=== PATIENT | female | born 1990 | race Caucasian/White ===

== ENCOUNTER 2019-02-16 05:26 | Inpatient (IN) | payer OTHER, MEDICAID ==
[2019-02-16] MEDS ORDERED: Sodium Chloride 0.9% 10 ML Syringe FLUSH PRN (05:54)
[2019-02-16] MEDS ORDERED: Sodium Chloride 0.9% 10 ML SDV IV PRN (05:54)
[2019-02-16] MEDS ORDERED: Sodium Chloride 0.9% 2.5 ML Syringe FLUSH PRN (05:54)
[2019-02-16] MEDS: Lactated Ringers 1,000 ML IV SCH ×3 (06:15→21:10)
--- NOTE | 2019-02-16 07:28 | PCM.PREANE ---
Preanesthetic Assessment - Anesthesia/Transfusion/Family Hx Anesthesia History: Prior Anesthesia Without Reaction Family History of Anesthesia Reaction: No Transfusion History: No Prior Transfusion(s) Intubation History: Unknown - Review of Systems General: No Symptoms Pulmonary: No Symptoms Cardiovascular: No Symptoms Gastrointestinal: No Symptoms Neurological: No Symptoms Other: Reports: None - Physical Assessment Height: 1.65 m Weight: 95.254 kg ASA Class: 2 Mental Status: Alert & Oriented x3 Airway Class: Mallampati = 2 Dentition: Reports: Normal Dentition Thyro-Mental Finger Breadths: 3 Mouth Opening Finger Breadths: 3 ROM/Head Extension: Full Lungs: Clear to Auscultation, Normal Respiratory Effort Cardiovascular: Regular Rate, Regular Rhythm - Lab Values: Laboratory Last Values WBC 9.47 K/uL (4.0-11.0) 02/16/19 06:15 RBC 3.96 M/uL (4.30-5.90) L 02/16/19 06:15 Hgb 11.5 g/dL (12.0-16.0) L 02/16/19 06:15 Hct 34.1 % (36.0-46.0) L 02/16/19 06:15 MCV 86.1 fL (80.0-98.0) 02/16/19 06:15 MCH 29.0 pg (27.0-32.0) 02/16/19 06:15 MCHC 33.7 g/dL (31.0-37.0) 02/16/19 06:15 RDW Std Deviation 45.7 fl (28.0-62.0) 02/16/19 06:15 RDW Coeff of Aleena 15 % (11.0-15.0) 02/16/19 06:15 Plt Count 145 K/uL (150-400) L 02/16/19 06:15 Nucleated RBC % 0.0 /100WBC 02/16/19 06:15 Nucleated RBCs # 0 K/uL 02/16/19 06:15 Blood Type O POSITIVE 02/16/19 06:15 Antibody Screen NEGATIVE 02/16/19 06:15 - Allergies Allergies/Adverse Reactions: Allergies Allergy/AdvReac Type Severity Reaction Status Date / Time No Known Allergies Allergy Verified 12/30/18 11:02 - Blood Blood Available: No - Anesthesia Plan Pre-Op Medication Ordered: None - Acknowledgements Anesthesia Type Planned: Spinal Pt an Appropriate Candidate for the Planned Anesthesia: Yes Alternatives and Risks of Anesthesia Discussed w Pt/Guardian: Yes Pt/Guardian Understands and Agrees with Anesthesia Plan: Yes PreAnesthesia Questionnaire Other Gastrointestinal History: occasional heartburn, not recently Genitourinary History: Reports: None 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) Endocrine/Metabolic History: Reports: Diabetes, Gestational Other Endocrine/Metabolic History: diet controlled - Past Surgical History GI Surgical History: Reports: Cholecystectomy Female Surgical History: Reports: Section - SUBSTANCE USE Smoking Status *Q: Never Smoker Recreational Drug Use History: No - HOME MEDS Home Medications: Home Meds PNV95/Ferrous Fumarate/FA [ Tablet] 1 each PO DAILY 01/13/19 [History] - CURRENT (IN HOUSE) MEDS Current Meds: Current Medications Citric Acid/Sodium Citrate (Bicitra Solution) 30 ml PO ONETIME ONE Stop: 02/16/19 07:31 Cefazolin Sodium/Dextrose 2 gm (/ Premix) 50 mls @ 100 mls/hr IV ONETIME ONE Stop: 02/16/19 07:59 Lactated Ringer's (Ringers, Lactated) 1,000 mls @ 500 mls/hr IV BOLUS MAYURI Oxytocin/Sodium Chloride (Oxytocin 30 Unit/500 Ml-Ns) 30 unit in 500 mls @ 250 mls/hr IV TITRATE MAYURI Sodium Chloride (Saline Flush) 10 ml FLUSH ASDIRECTED PRN PRN Reason: Keep Vein Open Sodium Chloride (Saline Flush) 2.5 ml FLUSH ASDIRECTED PRN PRN Reason: Keep Vein Open Sodium Chloride (Normal Saline) 10 ml IV ASDIRECTED PRN PRN Reason: IV Use
[2019-02-16] MEDS ORDERED: ceFAZolin 2 GM in Premix Bag 1 BAG IV ONE (07:30)
[2019-02-16] MEDS ORDERED: Citric Acid/Sodium Citrate Solution 30 ML Cup PO ONE (07:30)
[2019-02-16] MEDS ORDERED: Oxytocin/0.9 % Sodium Chloride 30 UNIT/500 ML BAG IV SCH (07:30)
[2019-02-16] MEDS ORDERED: Oxytocin 10 Units/1 ML SDV ONE (07:41)
[2019-02-16] MEDS ORDERED: Octyl 2-Cyanoacrylate 1 Tube ONE (07:41)
[2019-02-16] MEDS ORDERED: Ondansetron 4 MG/2 ML SDV ONE (07:41)
[2019-02-16] MEDS ORDERED: Morphine PF 10 MG/10 ML SDV ONE (07:41)
[2019-02-16] MEDS ORDERED: ceFAZolin 1 GM Vial ONE (07:42)
[2019-02-16] MEDS ORDERED: Sodium Chloride 0.9% 20 ML ONE (07:42)
--- NOTE | 2019-02-16 07:56 | PCM.LDHP ---
L&D History of Present Illness - General Date of Service: 02/16/19 Admit Problem/Dx: Patient Status Order with Admit Dx/Problem 02/16/19 05:55 Patient Status [ADT] Routine Admission Diagnosis/Problem Admission Diagnosis/Problem Source of Information: Patient History Limitations: Reports: No Limitations - History of Present Illness Improves with: Reports: None Worsens with: Reports: None Associated Symptoms: Reports: N - Related Data Allergies/Adverse Reactions: Allergies Allergy/AdvReac Type Severity Reaction Status Date / Time No Known Allergies Allergy Verified 12/30/18 11:02 Home Medications: Home Meds PNV95/Ferrous Fumarate/FA [ Tablet] 1 each PO DAILY 01/13/19 [History] Past Medical History Other Gastrointestinal History: occasional heartburn, not recently Genitourinary History: Reports: None 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) Endocrine/Metabolic History: Reports: Diabetes, Gestational Other Endocrine/Metabolic History: diet controlled - Past Surgical History GI Surgical History: Reports: Cholecystectomy Female Surgical History: Reports: Section Social & Family History - Tobacco Use Smoking Status *Q: Never Smoker - Recreational Drug Use Recreational Drug Use: No Drug Use in Last 12 Months: No H&P Review of Systems - Review of Systems: Review Of Systems: See Below General: Reports: No Symptoms HEENT: Reports: No Symptoms Pulmonary: Reports: No Symptoms Cardiovascular: Reports: No Symptoms Gastrointestinal: Reports: No Symptoms Genitourinary: Reports: No Symptoms Musculoskeletal: Reports: No Symptoms Skin: Reports: No Symptoms Psychiatric: Reports: No Symptoms Neurological: Reports: No Symptoms Hematologic/Lymphatic: Reports: No Symptoms Immunologic: Reports: No Symptoms L&D Exam - Exam Exam: See Below - Vital Signs Weight: 95.254 kg - OB Specific Fundal Height In cm: 45 Contraction Intensity: Mild Movement: Active Heart Tones: Present Presentation: Vertex - Exam General: Alert, Oriented HEENT: PERRLA, Conjunctiva Clear, EACs Clear, EOMI, Hearing Intact, Mucosa Moist & [place], Nares Patent, Normal Nasal Septum, Posterior Pharynx Clear, TMs Clear Neck: Supple, Trachea Midline Lungs: Clear to Auscultation, Normal Respiratory Effort Cardiovascular: Regular Rate, Regular Rhythm GI/Abdominal Exam: Normal Bowel Sounds, Soft, Non-Tender, No Organomegaly, No Distention, No Abnormal Bruit, No Mass, Pelvis Stable Rectal Exam: Normal Exam, Normal Rectal Tone Genitourinary: Normal external exam, Normal bimanual exam, Normal speculum exam Back Exam: Normal Inspection, Full Range of Motion Extremities: Normal Inspection, Normal Range of Motion, Non-Tender, No Pedal Edema, Normal Capillary Refill Skin: Warm, Dry, Intact Neurological: Cranial Nerves Intact, Reflexes Equal Bilateral Psychiatric: Alert, Normal Affect, Normal Mood - Patient Data Lab Results Last 24 hrs: Laboratory Results - last 24 hr 02/16/19 02/16/19 02/16/19 Range/Units 06:15 06:15 07:44 WBC 9.47 (4.0-11.0) K/uL RBC 3.96 L (4.30-5.90) M/uL Hgb 11.5 L (12.0-16.0) g/dL Hct 34.1 L (36.0-46.0) % MCV 86.1 (80.0-98.0) fL MCH 29.0 (27.0-32.0) pg MCHC 33.7 (31.0-37.0) g/dL RDW Std Deviation 45.7 (28.0-62.0) fl RDW Coeff of Aleena 15 (11.0-15.0) % Plt Count 145 L (150-400) K/uL Nucleated RBC % 0.0 /100WBC Nucleated RBCs # 0 K/uL POC Glucose 66 (60-110) mg/dL Blood Type O POSITIVE Antibody Screen NEGATIVE Result Diagrams: 02/16/19 06:15 Problem List Initiated/Reviewed/Updated: Yes Orders Last 24hrs: Active Orders 24 hr Category Date Time Status Patient Status [ADT] Routine ADT 02/16/19 05:55 Active Non Stress Test [RC] PER UNIT ROUTINE Care 02/16/19 05:55 Active Notify Provider Vital Signs [RC] PRN Care 02/16/19 05:55 Active Procedure Site Prep Instruct [RC] ASDIRECTED Care 02/16/19 05:55 Active Up ad Naila [RC] ASDIRECTED Care 02/16/19 05:55 Active Verify Patient Consent Obtain [RC] ASDIRECTED Care 02/16/19 05:55 Active Vital Signs [RC] PER UNIT ROUTINE Care 02/16/19 05:55 Active Lactated Ringers [Ringers, Lactated] 1,000 ml Med 02/16/19 06:00 Active IV BOLUS Oxytocin/0.9 % Sodium Chloride [Oxytocin 30 Unit/500 ML Med 02/16/19 07:30 Active -NS] 30 unit in 500 ml IV TITRATE Sodium Chloride 0.9% [Normal Saline] Med 02/16/19 05:54 Active 10 ml IV ASDIRECTED PRN Sodium Chloride 0.9% [Saline Flush] Med 02/16/19 05:54 Active 10 ml FLUSH ASDIRECTED PRN Sodium Chloride 0.9% [Saline Flush] Med 02/16/19 05:54 Active 2.5 ml FLUSH ASDIRECTED PRN ceFAZolin [Ancef] 2 gm Med 02/16/19 07:30 Active Premix Bag 1 bag IV ONETIME Peripheral IV Insertion Adult [OM.PC] Routine Oth 02/16/19 05:55 Ordered Schedule Procedure [COMM] Per Unit Routine Oth 02/16/19 05:55 Ordered Resuscitation Status Routine Resus Stat 02/16/19 05:54 Ordered Medication Orders Cefazolin Sodium/Dextrose 2 gm (/ Premix) 50 mls @ 100 mls/hr IV ONETIME ONE Stop: 02/16/19 07:59 Lactated Ringer's (Ringers, Lactated) 1,000 mls @ 500 mls/hr IV BOLUS MAYURI Last Admin: 02/16/19 07:16 Dose: 999 mls/hr Infusion: 02/16/19 07:16 Dose: 999 mls/hr Admin: 02/16/19 06:15 Dose: 999 mls/hr Oxytocin/Sodium Chloride (Oxytocin 30 Unit/500 Ml-Ns) 30 unit in 500 mls @ 250 mls/hr IV TITRATE MAYURI Sodium Chloride (Saline Flush) 10 ml FLUSH ASDIRECTED PRN PRN Reason: Keep Vein Open Sodium Chloride (Saline Flush) 2.5 ml FLUSH ASDIRECTED PRN PRN Reason: Keep Vein Open Sodium Chloride (Normal Saline) 10 ml IV ASDIRECTED PRN PRN Reason: IV Use Assessment/Plan Comment:: IUP 37 wks twin admitted for elective repeat C/section.
[2019-02-16] MEDS ORDERED: 50% Dextrose in Water 50 ML Syringe ONE (08:07)
[2019-02-16] MEDS ORDERED: Phenylephrine/Normal Saline 100 MCG/ML 10 ML Syringe ONE (08:11)
[2019-02-16] MEDS ORDERED: ePHEDrine 50 MG/ML SDV ONE (08:11)
[2019-02-16] MEDS ORDERED: Naloxone 0.4 MG/ML Syringe IVPUSH PRN (08:46)
[2019-02-16] MEDS ORDERED: diphenhydrAMINE 50 MG/ML SDV IVPUSH PRN ×2 (08:46→08:56)
[2019-02-16] MEDS ORDERED: Nalbuphine 10 MG/1 ML Vial IVPUSH PRN (08:46)
[2019-02-16] MEDS ORDERED: Bisacodyl 10 MG Supp RECTAL PRN (08:56)
[2019-02-16] MEDS ORDERED: Acetaminophen/oxyCODONE 325-5 MG Tab PO PRN (08:56)
[2019-02-16] MEDS ORDERED: Ibuprofen 800 MG Tab PO PRN (08:56)
[2019-02-16] MEDS ORDERED: Lanolin 100% Cream 7 GM Tube TOP PRN (08:56)
[2019-02-16] MEDS: Ketorolac 30 MG/ML SDV IVPUSH SCH ×3 (09:00→21:13)
--- NOTE | 2019-02-16 09:00 | PCM.OPNOTE ---
- General Post-Op/Procedure Note Date of Surgery/Procedure: 02/16/19 Operative Procedure(s): Repeat C/section. Pre Op Diagnosis: Twin at 37 wks. previous C/section. Post-Op Diagnosis: Same Anesthesia Technique: Spinal Primary Surgeon: Hai Avery EBL in mLs: 700 Complications: None Condition: Good
--- NOTE | 2019-02-16 14:30 | OR ---
SURGEON: Hai Avery MD DATE OF PROCEDURE: 02/16/2019 PREOPERATIVE DIAGNOSES: 1. Intrauterine at 37 weeks, twin . 2. Previous section. POSTOPERATIVE DIAGNOSES: 1. Intrauterine at 37 weeks, twin . 2. Previous section. OPERATION PERFORMED: Elective repeat section for twin . MANAGER TECHNICAL TRAINING: Janine Hernandez, certified nurse blood bank custodian student. MEDICAL RECORD CODER: Michael Jones M.D. ANESTHESIA: Spinal. ANESTHESIOLOGIST: Mr. Kobi Richey and Dr. Saldana. ESTIMATED BLOOD LOSS: 700 mL. COMPLICATIONS: None. FINDING: Twin male and female. score reported for both of them are 8 and 9. Normal uterus, tubes, and ovaries. INDICATION FOR SURGERY: The patient is with twin, she is 37 weeks. She had a previous section. She is admitted for elective repeat section. PROCEDURE IN DETAIL: The patient was brought to the OR, properly identified, and after adequate level of spinal anesthesia with a Rodriguez catheter in the bladder, the patient was prepped and draped in sterile fashion as usual. Time-out was taken and the patient reidentified properly, and low transverse Pfannenstiel skin incision was done through the old scar. The Malini's fascia and rectus fascia were opened in direction of the incision. The two recti muscles were and peritoneal cavity was entered. Bladder flap was raised in the usual manner pushing the bladder away from the lower uterine segment, then a low-transverse uterine incision was done and extended manually with the hand. Fetus was in a vertex position, delivered without any problem, cried immediately. score reported to be 8 and 9, and then after handed twin A to the diamond merchant for further resuscitation, then twin B after rupture of membrane, was in a breech presentation, delivered without any problem, and his score was 8 and 9. The placenta delivered spontaneous, complete, and intact, and repair of the lower uterine segment was done with 2-0 Vicryl continuous interlocking in 2 layers. Reperitonealization done with 3-0 Vicryl continuous, and then the peritoneal cavity evacuated completely from all blood and blood clot and closed with 3-0 Vicryl continuous. The rectus fascia was closed with #1 PDS continuous, and Malini's fascia with 3-0 Vicryl continuous, and the skin was closed with skin clips, Insorb, and Dermabond. Instrument and sponge counts were correct. The patient tolerated the procedure well and went to recovery room in stable general condition. JOHN / DYLAN /[id number]
[2019-02-16] MEDS: Docusate Sodium 100 MG Cap PO SCH ×2 (14:41→21:13)
[2019-02-16] MEDS: Ondansetron 4 MG/2 ML SDV IVPUSH PRN (15:21)
[2019-02-17] MEDS: Ondansetron 4 MG/2 ML SDV IVPUSH PRN (03:05)
[2019-02-17] MEDS: Ketorolac 30 MG/ML SDV IVPUSH SCH ×2 (03:08→08:51)
[2019-02-17] MEDS: Lactated Ringers 1,000 ML IV SCH (03:10)
--- NOTE | 2019-02-17 08:42 | PCM.PNPP ---
- General Info Date of Service: 02/17/19 Functional Status: Reports: Pain Controlled - Review of Systems General: Reports: No Symptoms HEENT: Reports: No Symptoms Pulmonary: Reports: No Symptoms Cardiovascular: Reports: No Symptoms Gastrointestinal: Reports: No Symptoms Genitourinary: Reports: No Symptoms Musculoskeletal: Reports: No Symptoms Skin: Reports: No Symptoms Neurological: Reports: No Symptoms Psychiatric: Reports: No Symptoms - General Info Date of Service: 02/17/19 - Patient Data Vital Signs - Most Recent: Last Vital Signs Temp 36.9 C 02/17/19 08:14 Pulse 72 02/17/19 08:14 Resp 18 02/17/19 08:14 BP 122/83 02/17/19 08:14 Pulse Ox 97 02/17/19 08:14 Weight - Most Recent: 95.254 kg I&O - Last 24 Hours: Intake & Output 02/16/19 02/17/19 02/17/19 22:59 06:59 14:59 Output Total 525 650 Balance -525 -650 Lab Results - Last 24 Hours: Laboratory Results - last 24 hr 02/17/19 02/17/19 Range/Units 04:55 06:09 Hgb 7.9 L (12.0-16.0) g/dL Hct 24.3 L (36.0-46.0) % POC Glucose 87 (60-110) mg/dL Med Orders - Current: Current Medications Bisacodyl (Dulcolax) 10 mg RECTAL ONETIME PRN PRN Reason: Constipation Diphenhydramine HCl (Benadryl) 25 mg IVPUSH Q4H PRN PRN Reason: Itching Stop: 02/17/19 08:46 Diphenhydramine HCl (Benadryl) 25 mg IVPUSH Q6H PRN PRN Reason: Itching or Nausea Docusate Sodium (Colace) 100 mg PO BID [facility] Last Admin: 02/16/19 21:13 Dose: 100 mg Emollient Ointment (Lansinoh Hpa) 0 gm TOP ASDIRECTED PRN PRN Reason: Sore Nipples Lactated Ringer's (Ringers, Lactated) 1,000 mls @ 500 mls/hr IV BOLUS [facility] [place] Last Admin: 02/16/19 07:16 Dose: 999 mls/hr Oxytocin/Sodium Chloride (Oxytocin 30 Unit/500 Ml-Ns) 30 unit in 500 mls @ 250 mls/hr IV TITRATE [facility] [place] Lactated Ringer's (Ringers, Lactated) 1,000 mls @ 125 mls/hr IV ASDIRECTED [facility] [place] Last Admin: 02/17/19 03:10 Dose: 125 mls/hr Ibuprofen (Motrin) 800 mg PO Q8H PRN PRN Reason: mild pain or fever Ketorolac Tromethamine (Toradol) 30 mg IVPUSH Q6H [facility] [place] Stop: 02/17/19 09:01 Last Admin: 02/17/19 03:08 Dose: 30 mg Nalbuphine HCl (Nubain) 5 mg IVPUSH Q3H PRN PRN Reason: Pruritis Stop: 02/17/19 08:46 Naloxone HCl (Narcan) 0.1 mg IVPUSH ONETIME PRN PRN Reason: Respiratory Depression Stop: 02/17/19 08:46 Ondansetron HCl (Zofran) 4 mg IVPUSH Q4H PRN PRN Reason: Nausea/Vomiting Last Admin: 02/17/19 03:05 Dose: 4 mg Oxycodone/Acetaminophen (Percocet 325-5 Mg) 1 tab PO Q4H PRN PRN Reason: Pain (moderate 4-6) Oxycodone/Acetaminophen (Percocet 325-5 Mg) 2 tab PO Q4H PRN PRN Reason: Pain (moderate 4-6) Sodium Chloride (Saline Flush) 10 ml FLUSH ASDIRECTED PRN PRN Reason: Keep Vein Open Sodium Chloride (Saline Flush) 2.5 ml FLUSH ASDIRECTED PRN PRN Reason: Keep Vein Open Sodium Chloride (Normal Saline) 10 ml IV ASDIRECTED PRN PRN Reason: IV Use Discontinued Medications Cefazolin Sodium (Ancef) Confirm Administered Dose 2 gm .ROUTE .STK-MED ONE Stop: 02/16/19 07:43 Citric Acid/Sodium Citrate (Bicitra Solution) 30 ml PO ONETIME ONE Stop: 02/16/19 07:31 Last Admin: 02/16/19 23:43 Dose: Not Given Dextrose/Water (Dextrose 50% In Water) Confirm Administered Dose 50 ml .ROUTE .STK-MED ONE Stop: 02/16/19 08:08 Ephedrine Sulfate (Ephedrine Sulfate) Confirm Administered Dose 50 mg .ROUTE .STK-MED ONE Stop: 02/16/19 08:12 Cefazolin Sodium/Dextrose 2 gm (/ Premix) 50 mls @ 100 mls/hr IV ONETIME ONE Stop: 02/16/19 07:59 Last Admin: 02/16/19 23:43 Dose: Not Given Sodium Chloride (Normal Saline) Confirm Administered Dose 20 mls @ as directed .ROUTE .STK-MED ONE Stop: 02/16/19 07:43 Morphine Sulfate (Duramorph Pf) Confirm Administered Dose 10 mg .ROUTE .STK-MED ONE Stop: 02/16/19 07:42 Octyl Cyanoacrylate (Dermabond Advance) Confirm Administered Dose 2 applic .ROUTE .STK-MED ONE Stop: 02/16/19 07:42 Last Admin: 02/16/19 23:43 Dose: Not Given Ondansetron HCl (Zofran) Confirm Administered Dose 4 mg .ROUTE .STK-MED ONE Stop: 02/16/19 07:42 Oxytocin (Pitocin) Confirm Administered Dose 30 unit .ROUTE .STK-MED ONE Stop: 02/16/19 07:42 Phenylephrine HCl (Phenylephrine In Ns 100 Mcg/Ml) Confirm Administered Dose 1 mg .ROUTE .STK-MED ONE Stop: 02/16/19 08:12 - Interaction Infant Disposition, : [place] in Room with Family Interaction: Holding Infant Infant Feeding: Attempted ; Nursed Fair/Poor Support Person: - Recovery Exam Fundal Tone: Firm Fundal Level: At Umbilicus Fundal Placement: Midline Lochia Amount: Scant Lochia Color: Rubra/Red Perineum Description: Intact, Minimal Bruising/Swelling Episiotomy/Laceration: None Bladder Status: Voiding Urinary Elimination: Voided - Exam General: Alert, Oriented HEENT: Pupils Equal Neck: Supple Lungs: Clear to Auscultation, Normal Respiratory Effort Cardiovascular: Regular Rate, Regular Rhythm GI/Abdominal Exam: Normal Bowel Sounds, Soft, Non-Tender, No Organomegaly, No Distention, No Abnormal Bruit, No Mass, Pelvis Stable Extremities: Normal Inspection, Normal Range of Motion, Non-Tender, No Pedal Edema, Normal Capillary Refill Skin: Warm, Dry, Intact Wound/Incisions: Healing Well Neurological: No New Focal Deficit Psy/Mental Status: Alert, Normal Affect, Normal Mood - Problem List Review Problem List Initiated/Reviewed/Updated: Yes - My Orders Last 24 Hours: My Active Orders 02/16/19 08:56 Patient Status [ADT] Routine Ambulate [RC] PER UNIT ROUTINE Antiembolic Devices [RC] PER UNIT ROUTINE Communication Order [RC] PER UNIT ROUTINE Communication Order [RC] PER UNIT ROUTINE Communication Order [RC] Per Unit Routine May Shower [RC] ASDIRECTED RT Incentive Spirometry [RC] Q2HWA Vital Signs [RC] PER UNIT ROUTINE Acetaminophen/oxyCODONE [Percocet 325-5 MG] 1 tab PO Q4H PRN Acetaminophen/oxyCODONE [Percocet 325-5 MG] 2 tab PO Q4H PRN Bisacodyl [Dulcolax] 10 mg RECTAL ONETIME PRN Ibuprofen [Motrin] 800 mg PO Q8H PRN Lanolin [Lansinoh HPA] See Dose Instructions TOP ASDIRECTED PRN Ondansetron [Zofran] 4 mg IVPUSH Q4H PRN diphenhydrAMINE [Benadryl] 25 mg IVPUSH Q6H PRN Assess Lochia [WOMSER] Per Unit Routine Assess Uterine Involution [WOMSER] Per Unit Routine Breast Pump [WOMSER] Per Unit Routine Peripheral IV Discontinue [OM.PC] Routine Sequential Compression Device [OM.PC] Per Unit Routine 02/16/19 09:00 Docusate Sodium [Colace] 100 mg PO BID Ketorolac [Toradol] 30 mg IVPUSH Q6H Lactated Ringers [Ringers, Lactated] 1,000 ml IV ASDIRECTED 02/17/19 Breakfast Regular Diet [DIET] - Assessment Assessment:: S/p C/section doing well - Plan Plan:: IUP 37 wks twin admitted for elective repeat C/section.
[2019-02-17] MEDS: Docusate Sodium 100 MG Cap PO SCH ×2 (08:51→21:01)
--- NOTE | 2019-02-17 09:53 | PCM48HPAN ---
Post Anesthesia Note - EVALUATION WITHIN 48HRS OF ANESTHETIC Vital Signs in Normal Range: Yes Patient Participated in Evaluation: Yes Respiratory Function Stable: Yes Airway Patent: Yes Cardiovascular Function Stable: Yes Hydration Status Stable: Yes Pain Control Satisfactory: Yes Nausea and Vomiting Control Satisfactory: Yes Mental Status Recovered: Yes Resp Rate: 18
[2019-02-17] MEDS: Acetaminophen/oxyCODONE 325-5 MG Tab PO PRN ×2 (14:48→21:02)
[2019-02-18] MEDS: Acetaminophen/oxyCODONE 325-5 MG Tab PO PRN ×2 (08:31→13:29)
[2019-02-18] MEDS: Docusate Sodium 100 MG Cap PO SCH (08:32)
--- NOTE | 2019-02-18 10:14 | PCM.DCSUM1 ---
Discharge Summary - Hospital Course Diagnosis: Stroke: No - Discharge Data Discharge Date: 02/18/19 Discharge Disposition: Home, Self-Care 01 Condition: Good - Patient Summary/Data Operative Procedure(s) Performed: Repeat C/section. - Patient Instructions Diet: Usual Diet as Tolerated Activity: As Tolerated Driving: Do Not Drive Showering/Bathing: May Shower Notify Provider of: Fever, Increased Pain, Nausea and/or Vomiting - Discharge Plan Home Medications: Home Meds PNV95/Ferrous Fumarate/FA [ Tablet] 1 each PO DAILY 01/13/19 [History] Referrals: [facility] [Outside] - 02/27/19 8:30 am Hai Avery MD [Physician] - 03/31/19 9:30 am - Discharge Summary/Plan Comment DC Time >30 min.: Yes - General Info Date of Service: 02/18/19 Functional Status: Reports: Pain Controlled - Review of Systems General: Reports: No Symptoms HEENT: Reports: No Symptoms Pulmonary: Reports: No Symptoms Cardiovascular: Reports: No Symptoms Gastrointestinal: Reports: No Symptoms Genitourinary: Reports: No Symptoms Musculoskeletal: Reports: No Symptoms Skin: Reports: No Symptoms Neurological: Reports: No Symptoms Psychiatric: Reports: No Symptoms - Patient Data Vitals - Most Recent: Last Vital Signs Temp 36.3 C 02/18/19 04:00 Pulse 71 02/18/19 04:00 Resp 14 02/18/19 04:00 BP 117/78 02/18/19 04:00 Pulse Ox 97 02/18/19 04:00 Weight - Most Recent: 95.254 kg Med Orders - Current: Current Medications Bisacodyl (Dulcolax) 10 mg RECTAL ONETIME PRN PRN Reason: Constipation Diphenhydramine HCl (Benadryl) 25 mg IVPUSH Q6H PRN PRN Reason: Itching or Nausea Docusate Sodium (Colace) 100 mg PO BID [facility] Last Admin: 02/18/19 08:32 Dose: 100 mg Emollient Ointment (Lansinoh Hpa) 0 gm TOP ASDIRECTED PRN PRN Reason: Sore Nipples Lactated Ringer's (Ringers, Lactated) 1,000 mls @ 500 mls/hr IV BOLUS [facility] Last Admin: 02/16/19 07:16 Dose: 999 mls/hr Oxytocin/Sodium Chloride (Oxytocin 30 Unit/500 Ml-Ns) 30 unit in 500 mls @ 250 mls/hr IV TITRATE [facility] Lactated Ringer's (Ringers, Lactated) 1,000 mls @ 125 mls/hr IV ASDIRECTED [facility] Last Admin: 02/17/19 03:10 Dose: 125 mls/hr Ibuprofen (Motrin) 800 mg PO Q8H PRN PRN Reason: mild pain or fever Ondansetron HCl (Zofran) 4 mg IVPUSH Q4H PRN PRN Reason: Nausea/Vomiting Last Admin: 02/17/19 03:05 Dose: 4 mg Oxycodone/Acetaminophen (Percocet 325-5 Mg) 1 tab PO Q4H PRN PRN Reason: Pain (moderate 4-6) Oxycodone/Acetaminophen (Percocet 325-5 Mg) 2 tab PO Q4H PRN PRN Reason: Pain (moderate 4-6) Last Admin: 02/18/19 08:31 Dose: 2 tab Sodium Chloride (Saline Flush) 10 ml FLUSH ASDIRECTED PRN PRN Reason: Keep Vein Open Sodium Chloride (Saline Flush) 2.5 ml FLUSH ASDIRECTED PRN PRN Reason: Keep Vein Open Sodium Chloride (Normal Saline) 10 ml IV ASDIRECTED PRN PRN Reason: IV Use Discontinued Medications Cefazolin Sodium (Ancef) Confirm Administered Dose 2 gm .ROUTE .STK-MED ONE Stop: 02/16/19 07:43 Citric Acid/Sodium Citrate (Bicitra Solution) 30 ml PO ONETIME ONE Stop: 02/16/19 07:31 Last Admin: 02/16/19 23:43 Dose: Not Given Dextrose/Water (Dextrose 50% In Water) Confirm Administered Dose 50 ml .ROUTE .STK-MED ONE Stop: 02/16/19 08:08 Diphenhydramine HCl (Benadryl) 25 mg IVPUSH Q4H PRN PRN Reason: Itching Stop: 02/17/19 08:46 Ephedrine Sulfate (Ephedrine Sulfate) Confirm Administered Dose 50 mg .ROUTE .STK-MED ONE Stop: 02/16/19 08:12 Cefazolin Sodium/Dextrose 2 gm (/ Premix) 50 mls @ 100 mls/hr IV ONETIME ONE Stop: 02/16/19 07:59 Last Admin: 02/16/19 23:43 Dose: Not Given Sodium Chloride (Normal Saline) Confirm Administered Dose 20 mls @ as directed .ROUTE .STK-MED ONE Stop: 02/16/19 07:43 Ketorolac Tromethamine (Toradol) 30 mg IVPUSH Q6H [facility] Stop: 02/17/19 09:01 Last Admin: 02/17/19 08:51 Dose: 30 mg Morphine Sulfate (Duramorph Pf) Confirm Administered Dose 10 mg .ROUTE .STK-MED ONE Stop: 02/16/19 07:42 Nalbuphine HCl (Nubain) 5 mg IVPUSH Q3H PRN PRN Reason: Pruritis Stop: 02/17/19 08:46 Naloxone HCl (Narcan) 0.1 mg IVPUSH ONETIME PRN PRN Reason: Respiratory Depression Stop: 02/17/19 08:46 Octyl Cyanoacrylate (Dermabond Advance) Confirm Administered Dose 2 applic .ROUTE .STK-MED ONE Stop: 02/16/19 07:42 Last Admin: 02/16/19 23:43 Dose: Not Given Ondansetron HCl (Zofran) Confirm Administered Dose 4 mg .ROUTE .STK-MED ONE Stop: 02/16/19 07:42 Oxytocin (Pitocin) Confirm Administered Dose 30 unit .ROUTE .STK-MED ONE Stop: 02/16/19 07:42 Phenylephrine HCl (Phenylephrine In Ns 100 Mcg/Ml) Confirm Administered Dose 1 mg .ROUTE .STK-MED ONE Stop: 02/16/19 08:12 - Exam General: Reports: Alert, Oriented HEENT: Reports: Pupils Equal, Pupils Reactive, EOMI, Mucous Membr. Moist/[place] Neck: Reports: Supple Lungs: Reports: Clear to Auscultation, Normal Respiratory Effort Cardiovascular: Reports: Regular Rate, Regular Rhythm GI/Abdominal Exam: Normal Bowel Sounds, Soft, Non-Tender, No Organomegaly, No Distention, No Abnormal Bruit, No Mass, Pelvis Stable (Female) Exam: Normal External Exam, Normal Speculum Exam, Normal Bimanual Exam Rectal (Female) Exam: Normal Exam, Normal Rectal Tone Back Exam: Reports: Normal Inspection, Full Range of Motion Extremities: Normal Inspection, Normal Range of Motion, Non-Tender, No Pedal Edema, Normal Capillary Refill Skin: Reports: Warm, Dry, Intact Wound/Incisions: Reports: Healing Well Neurological: Reports: No New Focal Deficit Psy/Mental Status: Reports: Alert, Normal Affect, Normal Mood
== END 2019-02-18 15:05 | disposition home or self-care (01) | DRG 788 ==
LOC: MW.OB 05:26
PROVIDERS: ADMIT Obstetrics & Gynecology; ATTEND Obstetrics & Gynecology
PROC: 10D00Z1 Extraction of Products of Conception, Low, Open Approach (ICD-10-PCS; principal; 2019-02-16)
DX: O34.211 Maternal care for low transverse scar from previous cesarean delivery (principal); O30.003 Twin pregnancy, unspecified number of placenta and unspecified number of amniotic sacs, third trimester; O32.1XX2 Maternal care for breech presentation, fetus 2; O24.420 Gestational diabetes mellitus in childbirth, diet controlled; Z3A.37 37 weeks gestation of pregnancy; Z37.2 Twins, both liveborn; N85.8 Other specified noninflammatory disorders of uterus; Z90.49 Acquired absence of other specified parts of digestive tract
CPT/HCPCS: 36415; 59025; 82962; 85014; 85018; 85027; 86850; 86900; 86901; A9270-GY; J0690; J1885; J2270; J2370; J2405; J2590; J7060; J7120

== ENCOUNTER 2024-03-10 16:50 | Emergency (ER) | payer MEDICAID ==
[2024-03-10] MEDS: Cefdinir 300 MG Cap PO ONE (17:55)
== END 2024-03-10 17:59 | disposition home or self-care (01) ==
LOC: MW.ED 16:50
DX: J02.9 Acute pharyngitis, unspecified (principal); Z75.8 Other problems related to medical facilities and other health care
CPT/HCPCS: 99283; A9270